=== PATIENT | male | born 1960 | race Caucasian/White ===

== ENCOUNTER → 2018-08-17 17:54 | Outpatient (CLI) | payer BC, SELFPAY ==
--- NOTE | 2018-08-17 18:03 | RAD_ITS ---
HISTORY: RIGHT SHOULDER PAIN COMPARISON: None FINDINGS: XR right shoulder 4 views No fracture or acute disease. The right glenohumeral relationship appears normal. Degenerative arthritis with mild narrowing of the right AC joint. No soft tissue calcifications. RAD/Shoulder min 2 Views IMPRESSION: 1. No fracture or acute disease. 2. Right AC joint mild degenerative arthritis. at 030 Reported and signed by: Haider Rainey MD Electronically Signed: Haider Rainey, at 3:08 EDT Tel , Service support ,
== END ==
PROVIDERS: Family Provider Family Medicine; PCP Family Medicine; Referring Provider Family Medicine; Visit Provider Family Medicine
DX: M25.511 Pain in right shoulder (principal)
CPT/HCPCS: 73030

== ENCOUNTER → 2018-11-01 | Outpatient (CLI) | payer BC, SELFPAY ==
[2018-11-01 12:38] LABS: ALB/GLOB Ratio 1.1 RATIO (0.9-2.4); AST(SGOT) 21 U/L (15-37); Alanine Aminotransfer ALT/SGPT 38 U/L (16-61); Albumin, Serum 3.6 g/dL (3.2-5.0); Alkaline Phosphatase 66 U/L (45-117); Anion Gap 6 (5-15); BUN 15 mg/dL (7-18); BUN/Creat Ratio 19.8 RATIO (10-20); Calcium,Total 8.2 mg/dL (8.5-10.1); Chloride 107 mmol/L (98-107); Cholesterol 187 mg/dL (200); Creatinine, Serum 0.76 mg/dL (0.70-1.30); EST Glomerular Filtration Rate 112 mL/min (>60); Est Glom Filt Rate - Afr Amer 135 mL/min (>60); Globulin 3.3 g/dL (2.2-4.2); Glucose 84 mg/dL (74-106); High Density Lipoprotein 51 mg/dL; PSA,Total - Annual Screen 1.31 ng/mL (0.00-4.00); Potassium 4.3 mmol/L (3.5-5.1); Protein, Total 6.9 g/dL (6.4-8.2); Sodium Level 139 mmol/L (136-145); Triglycerides 123 mg/dL; Very Low Density Lipoprotein 25 mg/dL (5-40)
== END | disposition home or self-care (01) ==
LOC: MFPLAB 09:51
PROVIDERS: Family Provider Family Medicine; PCP Family Medicine; Visit Provider Family Medicine
DX: I10 Essential (primary) hypertension (principal); Z12.5 Encounter for screening for malignant neoplasm of prostate
CPT/HCPCS: 36415; 80053; 80061; 84153; G0103

== ENCOUNTER → 2019-04-04 16:05 | Outpatient (CLI) | payer BC, SELFPAY ==
[2019-04-04 17:56] LABS: Anion Gap 9 (5-15); BUN 14 mg/dL (7-18); BUN/Creat Ratio 19.2 RATIO (10-20); Calcium,Total 8.6 mg/dL (8.5-10.1); Chloride 102 mmol/L (98-107); Creatinine, Serum 0.73 mg/dL (0.70-1.30); EST Glomerular Filtration Rate 117 mL/min (>60); Est Glom Filt Rate - Afr Amer 142 mL/min (>60); Glucose 100 mg/dL (74-106); Potassium 3.7 mmol/L (3.5-5.1); Sodium Level 138 mmol/L (136-145)
== END ==
PROVIDERS: Family Provider Family Medicine; PCP Family Medicine; Visit Provider Family Medicine
DX: I10 Essential (primary) hypertension (principal); R30.0 Dysuria
CPT/HCPCS: 36415; 80048; 87086

== ENCOUNTER → 2019-08-11 16:59 | Outpatient (CLI) | payer BC, SELFPAY ==
--- NOTE | 2019-08-11 17:04 | RAD_ITS ---
STUDY: X-RAY - LEFT KNEE REASON FOR EXAM: Male, 59 years old. LEFT KNEE PAIN AND SWELLING X 3-6 MO TECHNIQUE: 4 view(s) of the knee. COMPARISON: None. FINDINGS: Normal visualized distal femur. Normal visualized proximal tibia and fibula. Normal proximal tibiofibular articulation. There is no demonstrated fracture. Mild narrowing of the medial tibiofemoral compartment without osteophytes. Normal lateral femorotibial compartment. Normal patellofemoral articulation. There is no demonstrated joint effusion. The soft tissue structures are unremarkable. RAD/Knee 4 or More Views IMPRESSION: No acute fracture or dislocation. Mild narrowing of the medial tibiofemoral compartment. Electronically Signed: Joseluis Amaya MD at 0:02 EDT , Service support ,
== END ==
PROVIDERS: PCP Family Medicine; Referring Provider Family Medicine; Visit Provider Family Medicine
DX: M25.562 Pain in left knee (principal)
CPT/HCPCS: 73564

== ENCOUNTER → 2019-10-26 07:11 | Outpatient (CLI) | payer BC, SELFPAY ==
--- NOTE | 2019-10-26 07:20 | MRI_ITS ---
STUDY: MRI LEFT KNEE REASON FOR EXAM: Medial left knee pain for 6-8 months, no specific injury. TECHNIQUE: Standardized fat and water weighted pulse sequences were obtained in all 3 orthogonal planes. COMPARISON: Radiographs 08/11/2019. FINDINGS: There is tear/degeneration of the posterior horn and body of the medial meniscus (proton density sagittal images 9-16; proton density coronal images 14-18). There is peripheral subluxation of the medial meniscus. There is arthrosis of the medial femorotibial compartment with chondral thinning (T2 sagittal image 8). There is subchondral bone edema of the medial femoral condyle and tibial plateau (T2 coronal images 11-20), a stress phenomenon. Normal medial collateral ligamentous complex (MCL). Normal distal semimembranosus, gracilis and semitendinosus tendons. Normal lateral meniscus. Normal hyaline cartilage of the lateral femorotibial compartment. Normal lateral femoral condyle and tibial plateau. Normal proximal tibiofibular articulation. Normal lateral collateral (fibular) ligament. Normal popliteus tendon. Normal biceps femoris tendon. Normal anterior cruciate ligament (ACL). Normal posterior cruciate ligament (PCL). Normal congruent patellofemoral articulation. There is low-grade chondromalacia patellae (T2 axial images 7, 8). Normal medial and lateral patellar retinaculum. Normal visualized quadriceps tendon. Normal patellar tendon. Normal Hoffa''s fat pad. There is a [id number]-[id number]-mcpypesz sized joint effusion. There is a small popliteal cyst with mild extravasation of fluid (T2 coronal images 2-5). The otherwise visualized osseous structures are unremarkable. MRI/Lower Ext Joint Only (Routine) IMPRESSION: Tear/degeneration of the medial meniscus. Arthrosis of the medial femorotibial compartment. Subchondral bone edema of the medial femoral condyle and tibial plateau, a stress phenomenon. Low-grade chondromalacia patellae. Joint effusion. Small popliteal cyst with mild extravasation of fluid. Electronically Signed: Alvin Haji MD at 8:51 EDT Tel , Service support ,
== END ==
PROVIDERS: PCP Family Medicine; Referring Provider Family Medicine; Visit Provider Family Medicine
DX: M25.562 Pain in left knee (principal)
CPT/HCPCS: 73721

== ENCOUNTER → 2019-12-28 11:03 | Outpatient (CLI) | payer BC, SELFPAY ==
[2019-12-28 12:35] LABS: Hematocrit 47.2 % (40-54); Hemoglobin 15.6 g/dL (13.0-16.5); Mean Corp Hgb Conc 33.1 g/dL (32-36); Mean Corpuscular Hgb 30.7 pg (27.0-32.0); Mean Corpuscular Volume 92.9 fL (80-94); Mean Platelet Vol. 9.7 fl (6.2-12.0); Platelet Count 262 K/mm3 (150-450); RBC Distribution Width CV 11.8 % (11.6-14.6); RBC Distribution Width SD 40.4 fl (35.1-43.9); Red Blood Count 5.08 M/mm3 (4.6-6.2); White Blood Count 5.9 K/mm3 (4.4-11.0)
[2019-12-28 12:56] LABS: Prothrombin Time (Protime)PT. 12.7 SECONDS (11.7-14.9)
[2019-12-28 12:57] LABS: Partial Thromboplast Time 32.9 Seconds (24.1-36.2)
[2019-12-28 13:11] LABS: Anion Gap 2 (5-15); BUN 13 mg/dL (7-18); BUN/Creat Ratio 20.2 RATIO (10-20); Calcium,Total 8.7 mg/dL (8.5-10.1); Chloride 103 mmol/L (98-107); Cholesterol 208 mg/dL (200); Creatinine, Serum 0.64 mg/dL (0.70-1.30); EST Glomerular Filtration Rate 134 mL/min (>60); Est Glom Filt Rate - Afr Amer 162 mL/min (>60); Glucose 76 mg/dL (74-106); High Density Lipoprotein 54 mg/dL; PSA,Total - Annual Screen 1.45 ng/mL (0.00-4.00); Potassium 3.7 mmol/L (3.5-5.1); Sodium Level 137 mmol/L (136-145); Triglycerides 102 mg/dL; Very Low Density Lipoprotein 20 mg/dL (5-40)
== END ==
PROVIDERS: PCP Family Medicine; Referring Provider Family Medicine; Visit Provider Family Medicine
DX: Z01.818 Encounter for other preprocedural examination (principal); I10 Essential (primary) hypertension; Z12.5 Encounter for screening for malignant neoplasm of prostate
CPT/HCPCS: 36415; 80048; 80061; 84153; 85027; 85610; 85730; G0103

== ENCOUNTER → 2020-05-21 14:20 | Outpatient (CLI) | payer BC, SELFPAY ==
--- NOTE | 2020-05-21 14:22 | RAD_ITS ---
HISTORY: right shoulder paincervical radiculopathy at C5 ADDITIONAL HISTORY: None provided. EXAMINATION/TECHNIQUE: XR Spine Cervical 4 or 5 Views Number of images including paperwork: 5 COMPARISON: None FINDINGS: VERTEBRAE: No acute fracture. VERTEBRAL ALIGNMENT: No traumatic subluxation. Approximately 2 mm of anterolisthesis of C7 on T1. DISKS AND JOINTS: Moderate to severe disc space narrowing at C6-7. Mild to moderate disc space narrowing at C7-T1. Facet arthropathy. Mild foraminal narrowing at C7-T1 on the bilaterally. SOFT TISSUES: Unremarkable paraspinous soft tissues. RAD/Cerv Spine 4 or 5 Views IMPRESSION: No acute findings. Cervical spondylosis. at 0755 Reported and signed by: Dana Fairchild MD Electronically Signed: Dana Fairchild MD at 7:55 EST Tel , Service support ,
== END ==
PROVIDERS: PCP Family Medicine; Referring Provider Family Medicine; Visit Provider Family Medicine
DX: M54.12 Radiculopathy, cervical region (principal)
CPT/HCPCS: 72050

== ENCOUNTER 2020-06-19 10:00 | Outpatient (RCR) | payer BC, SELFPAY ==
--- NOTE | 2020-05-24 07:40 | HP.PTEVAL ---
Patient's Visit Information DAVID PAUL is a 59 year old M referred to Physical Therapy by Dr. Fermin Mancera MD with a diagnosis of cervical radicuopathy. Date of Evaluation: 05/24/20 Physical Therapist: Milton Lucia DPT, OCS, CSCS - Visit Plan Frequency: 2x /Week Duration: 4-6 Weeks Plan: 2x/week for 4-6 weeks. 1. moniotr and progress Natty ret ex to ext and mobs as needed, PROM and distraction as needed. 2. stretch cervical spine and may use massage to prep this as needed. 3. postural and cervical strength. 4. Mh as needed. - Subjective Having troube with R shoulder and arm. [place] in scapular area and upper arm hurts posteriorly. Duration is 2-3 months with insidious onset but painted barn by hand, not sure if that is what casued it. Improved slightly but not great. Has seen chripractor which helped slightly. Driving is worse. Pain is to 5/10 with driving in upper arm. Mostly constant to elbow. Sleep is OK. Works as warehouse and driving. Uses [employer] sitting. [place]rose after work for a week. Activiites a home are close to normal but if it really hurts will put things off. - Pain R upper arm Pain Intensity (Out of 10): 1 Pain Intensity Range: 0, 5 - Objective Forward head posture, forward scap. reflexes 2/3 bi and tri B. Sensation UE WNL to gross light touch. Strength UE symmetrical adn 4/5. Scapular and UE AROM WFL and symmetrical without pain. cervical AROM ext 50 slight pain. retraction limited and slight pain. R rotation 45 adn L 55. SB with pressure is painful scapula R bt not L. - HK, - neer impongement. RM baseline 5/10 thoracic and upper arm R. protrusion W to 6/10. retraction: pain during, arm better and back no change. Extension: 5/10 arm 5/10 toracic. ret/ext with OP: NE. ret with OP: W and back 6/10. Walks normal and trasnfers normal and I. - Goals Goal 1:: sit 30 minutes without increase pain and drive to work without pain. Goal Time Frame: 4-6 Weeks Goal 2:: Pt feel 75% better overall, no arm pain and 1/10 in neck at worst. Goal Time Frame: 4-6 Weeks Goal 3:: Oswestry neck 10 at worst Goal Time Frame: 4-6 Weeks Goal 4:: I approp HEP and managemnt to minimize future problems. Goal Time Frame: 4-6 Weeks - Rehabilitation Potential Physical Therapy Diagnosis: cervical derangement Rehabilitation Potential: Fair - Anticipated Interventions Patient/Client Instruction: Educate patient on: Condition, Plan of Care For the Purpose of:: To decrease pain, To increase ROM, To improve muscle performance and motor function, To increase tolerance to activity/condition/position Therapeutic Exercise to Include: Strength training, Flexibilty training, Passive ROM, Active ROM, Natty Exercises For the Purpose of:: To decrease pain, To increase ROM, To improve muscle performance and motor function, To increase tolerance to activity/condition/position Manual Therapy Techniques to Include: Passive ROM, Soft tissue mobilization For the Purpose of:: To decrease pain, To increase ROM Thermo therapy (hot pack): Yes For the Purpose of:: To decrease pain Thank you for the opportunity to evaluate your patient. For Medicare and Medicare HMO plans, please review the plan of care and approve it. It will need to be FAXED BACK to us at [phone] for Medicare purposes. For Medicare only, by signing this I certify the plan of care. Please let me know if there are questions or concerns regarding this plan of care. Physician Signature: Date:
--- NOTE | 2020-06-19 10:17 | HP.PTDCSUM ---
It has been my pleasure to treat DAVID PAUL referred by Dr. Fermin Mancera MD, with the diagnosis of cervical radicuopathy for a total of 6 visit(s). Discharge Date: 06/19/20 Please see the following information for a summary of their discharge status. Subjective: Still going the right way. Feeling better after exercises. Sitting around can be worse. Stretches really hep. Sleep is OK. Work is going OK. Sitting around is still mildly stiff. To Dr. Mancera tomorrow. R upper arm Pain Intensity (Out of 10): 6 % Improvement: 80 Objective/Function: 65 c/s ext, 70 B rotations, full flexion all without pain today. Posture is stillslightly FW head until cued but more conscious of postural [id number] and its importance. Strength UE 4+/5 without myotomal abnormalities. OVERALL DOING EXCELLENT AND READY TO MANAGE HIMSELF VIA HEP. Goal 1:: sit 30 minutes without increase pain and drive to work without pain. Goal Progress: intermittently Goal 2:: Pt feel 75% better overall, no arm pain and 1/10 in neck at worst. Goal Progress: Goal Met Goal 3:: Oswestry neck 10 at worst Goal Progress: Goal Met Goal 4:: I approp HEP and managemnt to minimize future problems. Goal Progress: Goal Met Plan: D/C Discharge Comments: Pt will f/u with doctor tomorrow and is doing well. Will manage via HEP at this point. If there are questions or concerns regarding this patient's physical therapy, please feel free to call me at [phone]. Thank you for the referral of this patient. Sincerely, Milton Lucia, DPT, OCS, CSCS
== END 2020-06-19 10:34 | disposition home or self-care (01) ==
LOC: PT 10:00
PROVIDERS: PCP Family Medicine; Referring Provider Family Medicine; Visit Provider Family Medicine
DX: M54.12 Radiculopathy, cervical region (principal)
CPT/HCPCS: 97110; 97140; 97162; 97530

== ENCOUNTER → 2020-08-09 08:18 | Outpatient (CLI) | payer BC, SELFPAY ==
[2020-08-09 10:42] LABS: Anion Gap 6 (5-15); BUN 15 mg/dL (7-18); BUN/Creat Ratio 20.3 RATIO (10-20); Calcium,Total 8.7 mg/dL (8.5-10.1); Chloride 104 mmol/L (98-107); Cholesterol 232 mg/dL (200); Creatinine, Serum 0.74 mg/dL (0.70-1.30); EST Glomerular Filtration Rate 114 mL/min (>60); Est Glom Filt Rate - Afr Amer 138 mL/min (>60); Glucose 84 mg/dL (74-106); High Density Lipoprotein 60 mg/dL; PSA,Total - Annual Screen 1.79 ng/mL (0.00-4.00); Potassium 3.8 mmol/L (3.5-5.1); Sodium Level 139 mmol/L (136-145); Triglycerides 110 mg/dL; Very Low Density Lipoprotein 22 mg/dL (5-40)
== END ==
PROVIDERS: PCP Family Medicine; Referring Provider Family Medicine; Visit Provider Family Medicine
DX: I10 Essential (primary) hypertension (principal); Z12.5 Encounter for screening for malignant neoplasm of prostate
CPT/HCPCS: 36415; 80048; 80061; 84153; G0103

== ENCOUNTER → 2020-10-01 | Outpatient (CLI) | payer BC, SELFPAY ==
--- NOTE | 2020-10-01 | LES_PTH ---
PATIENT: DAVID PAUL LOC: [facility] U#:[id number] AGE/SX: 60/M ROOM: RE10/01/[address]: Dr. Elkin Mancera MD : 1960 BED: DIS: 10/01/2020 SPEC #: [id number] RECD: 10/01/20 15:07 STATUS: ALEXANDER PRUITTCameron #: [id number] JAG: 10/01/20 00:[address]: Elkin Mancera DEPT: SURGICAL PATHOLOGY RECD BY: Champ Lee Tissues: Skin of chest Procedures: Surgery Specimen Level IV HEADER OPERATION: Chest lesion excision right side PRE-OP DIAGNOSIS: Rule out SCC TISSUE SUBMITTED: Chest lesion right side MICROSCOPIC DIAGNOSIS Skin lesion of right side of chest, biopsy: Invasive squamous cell carcinoma, keratoacanthomatous type, incompletely excised. See comment. AM:velma 10/03/2020 COMMENT The lesion extends to the deep margin of excision. Clinical correlation is suggested. Case has been reviewed in consultation with Dr. Thomas who concurs with the above diagnosis. IDC:SJ MICROSCOPIC DESCRIPTION Slides are reviewed. GROSS DESCRIPTION Received in fixative is one container labeled with the patient's name and designated chest lesion. The specimen consists of a piece of silva-white skin measuring 0.8 x 0.4 x 0.2 cm. The skin surface shows a silva-rudolph lesion measuring 0.5 cm in diameter. The specimen is inked and submitted entirely in one cassette. It will be sectioned at the time of embedding. / TONIA:rg 10/02/20 TC:0 CPT: 12458
== END | disposition home or self-care (01) ==
LOC: LABSPEC 15:13
PROVIDERS: PCP Family Medicine; Referring Provider Family Medicine; Visit Provider Family Medicine
DX: C44.529 Squamous cell carcinoma of skin of other part of trunk (principal)
CPT/HCPCS: 88305

== ENCOUNTER 2020-11-09 10:50 | Day surgery (SDC) | payer BC, SELFPAY ==
[2020-10-18 12:57] VITALS: BMI 25.8
--- NOTE | 2020-11-08 21:45 | HP.PCM_ITS ---
History and Physical Date of Admission: 11/09/20 HISTORY OF PRESENT ILLNESS 60 year old man presents with an enlarging lesion right upper medial chest wall by clavicle with some scabbing. A shave biopsy was done on 10/03/20. It showed invasive squamous cell carcinoma, keratoacanthoma type, with positive margins. He denies fever. He denies trauma. He denies recent infection. He has had skin cancers removed in the past. There is also a positive family history of skin cancer. He presents at this time for further evaluation and treatment. PAST MEDICAL HISTORY High blood pressure Personal history of skin cancer Primary squamous cell carcinoma of chest wall PAST SURGICAL HISTORY None. ALLERGIES No Known Allergies MEDICATIONS lisinopril-hydrochlorothiazide FAMILY HISTORY Cancer Diabetes Family history of skin cancer SOCIAL HISTORY Smoking Status: Never smoker alcohol intake: never substance use type: does not use REVIEW OF SYSTEMS General - Denies fever, fatigue, and weight loss. Eyes - Denies cataracts and glaucoma. ENT - Denies nasal congestion and sore throat. Has chronic sinusitis. Endocrine - Denies excessive thirst and urination. Skin - Has enlarging lesion right upper medial chest wall by clavicle that was biopsied on 10/03/20 and showed an invasive squamous cell carcinoma, keratoacanthoma type. Has personal history of skin cancer. Has family history of skin cancer. Musculoskeletal - Has joint pain, joint stiffness, weakness of muscles and joints. Denies back pain, and arthritis. Neuro - Denies headaches. Cardiovascular - Denies chest pain, fatigue, and shortness of breath with exertion. Psych - Denies anxiety and depression. Respiratory - Denies chronic cough and shortness of breath. Gastrointestinal - Denies nausea, vomiting, diarrhea, and constipation. Hematologic - Denies abnormal bruising and bleeding. Genitourinary - Denies hematuria and urinary frequency. PHYSICAL EXAMINATION General - Alert and Oriented. HEENT - PERRL. EOMI. Throat is clear. No suspicious lesions noted. Neck - Supple and nontender. No cervical adenopathy. No suspicious lesions noted. Chest wall - On the right upper medial chest wall by clavicle is a lesion with irregular borders. Some scabbing present. Measures 1.1 cm. No ulceration. Lesion is nontender. Recent biopsy on 10/03/20 showed an invasive squamous cell carcinoma, keratoacanthoma type. Lungs - Clear to auscultation. Heart - Regular rate and rhythm. Abdomen - Soft and nondistended. Extremities - FROM. No axillary adenopathy. Radial pulses are palpable. Neuro - CN II-XII grossly intact. Psych - Normal mood and affect. ASSESSMENT 1. 1.1 cm invasive squamous cell carcinoma, keratoacanthoma type, right upper medial chest wall by clavicle. 2. Personal history of skin cancer. 3. Family history of skin cancer. PLAN Recommend excision of this invasive squamous cell carcinoma, keratoacanthoma type, with a margin in all directions and send it to Pathology for analysis to rule out carcinoma at the margins. Will use a 6 mm margin. Reconstruction will be with a local transposition skin flap. Surgery will be done under local anesthesia and IV sedation on an outpatient basis. Patient was informed of the risks and complications of the procedure including alternatives to surgery. These were discussed with the patient personally. Patient voices understanding and wishes to proceed. Some of the risks and complications were included in a form from the [place] [employer]. We discussed the current risks associated with COVID-19. While it is understood that there is a community spread of COVID-19, the risk of simon COVID-19 while at [facility] ([facility]) is very low; however, the risk cannot be completely mitigated because of the community spread of the disease. We discussed in detail the risk of exposure to and/or potential harm posed by the COVID-19 virus with having a surgery/procedure at this time versus the risk of delaying the surgery/procedure. It is not possible to know either the risk of de laying the surgery or procedure or chance of getting an infection with perfect accuracy, but a joint decision was made to proceed at this time with the scheduled surgery/procedure as indicated on the consent form. Patient was notified that we will need to comply with any screening or testing [facility] wishes to perform or that surgery may be delayed for any positive results. Discussed with the patient that I was tested for COVID-19 on 12/01/19 which was negative and on 12/15/19 which was negative and on 12/29/19 which was negative and on 01/12/20 which was negative and on 01/26/20 which was negative and on 02/16/20 which was negative and on 03/08/20 which was negative and on 04/12/20 which was negative and on 05/03/20 which was negative and on 05/22/20 which was negative. My testing regimen at this time is to be COVID-19 tested every 2 weeks or so. I received the COVID-19 vaccine (Moderna) on 05/30/20 and the second vaccine dose was received on 06/27/20. When I was hospitalized on 07/30/20 I was tested for COVID-19 which was negative. I was also tested for COVID-19 on 08/14/20 which was negative and on 09/10/20 which was negative. Procedure Criteria Procedure Type: Elective COVID Risk Discussion: The surgeon/proceduralist and patient have discussed in detail the risk of exposure to and/or potential harm posed by the COVID-19 virus with having a surgery/procedure at this time versus the risk of delaying the surgery/procedure. It is not possible to know either the risk of delaying the surgery or procedure or chance of getting an infection with perfect accuracy, but a joint decision was made between the patient and the surgeon/proceduralist to proceed at this time with the scheduled surgery/procedure as indicated on the consent form.
--- NOTE | 2020-11-09 | LES_PTH ---
PATIENT: DAVID PAUL LOC: [facility] U#:[id number] AGE/SX: 60/M ROOM: RE11/09/[address]: Dr. Uriel Sutherladn MD : 1960 BED: DIS: 11/09/2020 SPEC #: [id number] RECD: 11/09/20 15:53 STATUS: ALEXANDER AGNES #: [id number] JAG: 11/09/20 00:[address]: Uriel Sutherland DEPT: SURGICAL PATHOLOGY RECD BY: Champ Lee ENTERED: 11/12/20 09:48 SP TYPE: Lesion OTHR DR: Dr. Elkin Mancera MD Tissues: Chest wall, NOS Procedures: Surgery Specimen Level IV HEADER OPERATION: Excision squamous cell carcinoma medial chest wall by clavicle PRE-OP DIAGNOSIS: Squamous cell carcinoma right upper medial chest wall TISSUE SUBMITTED: Squamous cell carcinoma right medial chest wall by clavicle, suture maria 12 o?clock MICROSCOPIC DIAGNOSIS Squamous cell carcinoma right medial chest wall by clavicle, excisional biopsy: Verrucous keratosis with seborrheic keratosis-like features, completely excised. Negative for residual squamous cell carcinoma. Dermal fibrosis, consistent with scar. See comment. TONIA:velma 11/13/2020 COMMENT Please make reference to previous specimen ([id number]), skin lesion of right side of chest, biopsy with diagnosis of ?invasive squamous cell carcinoma, keratoacanthomatous type, incompletely excised.? MICROSCOPIC DESCRIPTION Slides are reviewed. GROSS DESCRIPTION Received in fixative is one container labeled with the patient's name and designated squamous cell carcinoma right medial chest wall by clavicle, suture at 12 o'clock. The specimen consists of a irving-shaped piece of silva-white skin measuring 2 x 1.2 cm and up to 0.5 cm in thickness. A raised, silva lesion is noted on the surface measuring 0.5 cm in greatest dimension. The specimen is oriented by a suture identifying the 12 o?clock positon. The specimen is inked as follows: 12 to 3 o?clock - black, 3 to 6 o?clock - blue, 6 to 9 o?clock - green and 9 to 12 o?clock - yellow. The specimen is serially sectioned and submitted entirely in two cassettes. / TONIA:velma 11/12/20 TC:5 CPT: 63447
[2020-11-09 11:05] VITALS: BP 134/74; PULSE 74; RESP 14; TEMP 36.8; O2SAT 98; BMI 24.7
[2020-11-09] MEDS: Lactated Ringers 1,000 ML 100 ML IV (11:30)
[2020-11-09] MEDS: Cefazolin 2 GM in 0.9% Normal Saline 100 ML IV (14:13)
[2020-11-09] MEDS: Lidocaine 1% /Epi 1:100 (20ml) 20 ML Vial (14:40)
[2020-11-09] MEDS: Mupirocin Ointment 22gm Tube 1 APPLIC (14:56)
--- NOTE | 2020-11-09 15:10 | PCM.OPRPT ---
Problems Associated Problem List Diagnoses (1) Primary squamous cell carcinoma of chest wall: (2) Personal history of skin cancer: (3) Family history of skin cancer: Report of Operation Date of Procedure: 11/09/20 Pre-Operative Diagnosis: 1. 1.1 cm invasive squamous cell carcinoma, keratoacanthoma type, right upper medial chest wall by clavicle. 2. Personal history of skin cancer. 3. Family history of skin cancer. Post-Operative Diagnosis: Same. Surgery/Procedure Performed:: Excision 1.1 cm invasive squamous cell carcinoma, keratoacanthoma type, right upper medial chest wall by clavicle with rhomboid transposition skin flap reconstruction (10.58 cm2). Description of Surgical Findings:: 60 year old man presents with an enlarging lesion right upper medial chest wall by clavicle with some scabbing. A shave biopsy was done on 10/03/20. It showed invasive squamous cell carcinoma, keratoacanthoma type, with positive margins. He denies fever. He denies trauma. He denies recent infection. He has had skin cancers removed in the past. There is also a positive family history of skin cancer. Patient was informed of the risks and complications of the procedure including alternatives to surgery. These were discussed with the patient personally. Patient voices understanding and wishes to proceed. Some of the risks and complications were included in a form from the [place] [employer]. Surgeon: Uriel Sutherland environmental planning engineer: None Type of Anesthesia: Local MAC (xylocaine with epinephrine and IV sedation.) Specimen's removed: Invasive squamous cell carcinoma, keratoacanthoma type, right upper medial chest wall by clavicle to Pathology. Drains: None. Estimated Blood Loss (mL): 5. Description of Procedure: Patient was taken to OR in supine position and was given IV sedation. The chest wall was prepped and draped in the usual fashion. SCD's were placed for DVT prophylaxis. Perioperative antibiotics were given intravenously. The invasive squamous cell carcinoma, keratoacanthoma type, right upper medial chest wall by the clavicle was infiltrated with xylocaine and epinephrine. After waiting 5 minutes for the anesthetic to take effect, the lesion was excised with a 6 mm margin in all directions thus making it a 2.3 cm excision. It was excised in a rhomboid fashion down into the subcutaneous tissue. A suture was marked at 12 oclock position for pathology orientation. The lesion was sent to Pathology for analysis to rule out carcinoma at the margins. A rhomboid flap was designed adjacent to the defect. Incisions were made and the rhomboid flap was elevated on a subcutaneous pedicle. The flap was easily transposed into the defect with minimal tension and minimal distortion. The size of the defect and the size of the flap needed to close the defect was 10.58 cm2. Hemostasis was obtained with electrocautery. The rhomboid flap was transposed into the wound defect and closed in a layered fashion with 4-0 Monocryl interrupted sutures for the deep dermis and subcutaneous tissue. The skin was approximated with 4-0 Prolene simple interrupted sutures. Antibiotic ointment was applied to the suture line followed by a gauze dressing. Patient tolerated the procedure well and was sent to PACU in satisfactory condition. Patient will be sent home on antibiotics and pain medication. He will keep his head elevated during the initial postoperative period. Patient will followup in a week for a wound check and for discussion of the pathology report. The sutures will be removed in 1-2 weeks. Grafts/Implants Used: None. Complications None. Admit VTE Documentation VTE Present on Admission: No VTE Mechan Device Prophylaxis: [facility]'s VTE Pharm Prophylaxis ordered?: No Addendum Addendum: Surgery Charges CPT - 38740 ICD-10 - C76.1, Z85.828, Z80.8
--- NOTE | 2020-11-09 15:14 | PCM.DC ---
Discharge Instructions Diet Discharge Diet: No restrictions Activity Discharge Activity: May Not Drive (when taking pain medication.), May Shower (in two days.) and - (keep head elevated. no heavy lifting.) May shower in (days): 2 May resume sexual activity in: No Restrictions Weight Bearing Status: Weight bearing as tolerated Lifting Restrictions: 20 lbs. Keep extremity elevated above heart level: - (elevate head.) Dressing / Incision Call your doctor if your incision/area has: Continuous Slow Oozing, Sudden Increased Bleeding, Increased Pain/ Swelling, Increased Redness, Foul Smelling Discharge and Swelling at the incision site Call your doctor if you observe: Fever of 101 or Higher, Coldness, Increased Pain, Shortness of breath, Chest pain, Calf discomfort and Uncontrolled pain Suture Line Care: - (after operative dressing removed in two days, apply antibiotic ointment to suture line daily.) Remove Dressing in: 2 days Cleanse incision/area with: Soap & Water (after operative dressing removed in two days, the incision may get wet in the shower.) Follow Up Care Please Follow Up With: Uriel Sutherland MD When: one week. call [phone] for appt. Test Results: Test results from this visit will be discussed in further detail at your follow-up appointment, if applicable. Discharge Plan Admission Primary Reason for Your Visit: outpatient surgery Attending Provider: Uriel Sutherland Primary Care Provider: Fermin Mancera Discharge Orders/Prescriptions Prescriptions: New clindamycin HCl [Cleocin HCl] 300 mg capsule 300 mg PO TID Qty: 12 RF: 0 oxycodone-acetaminophen [Percocet] 5-325 mg tablet 1 tab PO Q6H PRN (Reason: pain (scale score 7-10)) 5 Days Qty: 20 RF: 0 Continued lisinopril-hydrochlorothiazide [Zestoretic] 10-12.5 mg tablet 1 tab PO BID RF: 0 Referrals / Follow Up: Fermin Mancera MD [Primary Care Provider] - Disposition Disposition (needs filled in before D/C Order can be placed): Home, self care
[2020-11-09 15:16] VITALS: BP 117/71; BP 134/74; PULSE 74; RESP 18; TEMP 36.3; O2SAT 98
[2020-11-09 15:20] VITALS: BP 120/75; BP 134/74; PULSE 70; RESP 16; O2SAT 98
[2020-11-09 15:25] VITALS: BP 131/77; BP 134/74; PULSE 75; RESP 16; O2SAT 99
[2020-11-09 15:33] VITALS: BP 130/79; BP 134/74; PULSE 75; RESP 16; TEMP 36.5; O2SAT 99
[2020-11-09 16:57] VITALS: BP 127/71; BP 134/74; PULSE 79; RESP 79; TEMP 36.5; O2SAT 100
== END 2020-11-09 16:59 | disposition home or self-care (01) ==
LOC: SDC 10:51 → AC 10:53
PROVIDERS: PCP Family Medicine; Referring Provider Surgery; Visit Provider Surgery
PROC: (CPT 14000; principal; 2020-11-09 12:20)
DX: C76.1 Malignant neoplasm of thorax (principal); L82.1 Other seborrheic keratosis; L57.0 Actinic keratosis; W89.9XXA Exposure to unspecified man-made visible and ultraviolet light, initial encounter; Y93.9 Activity, unspecified; Y92.9 Unspecified place or not applicable; Y99.9 Unspecified external cause status; L85.8 Other specified epidermal thickening; Z20.822 Contact with and (suspected) exposure to COVID-19; I10 Essential (primary) hypertension; Z85.828 Personal history of other malignant neoplasm of skin; Z80.8 Family history of malignant neoplasm of other organs or systems; Z83.3 Family history of diabetes mellitus
CPT/HCPCS: 00400; 14000; 87426; 88305; C9803; J7120

== ENCOUNTER → 2023-02-03 | Outpatient (CLI) | payer OTHER, SELFPAY ==
--- NOTE | 2023-02-03 11:58 | RAD_ITS ---
INDICATION: pain. Radiation to R groin. EXAMINATION/TECHNIQUE: X-RAY - XR Spine Lumbar Comp W/ Bending Min 6 Views COMPARISON: No prior examinations are available for comparison. FINDINGS: VERTEBRAE: Preserved vertebral body height. No fracture. No spondylolisthesis. Preservation of the normal lumbar lordosis. No substantial scoliosis. DISCS: Narrowing of L2-L3 and L4-5 disc spaces. Mild endplate spondylosis. INCLUDED ABDOMEN: Included bowel gas pattern is non-obstructive. RAD/L/S Spine w Bend Min 6 Vw IMPRESSION: Mild degenerative changes of the lumbar spine. Electronically Signed: Akash Rodriguez MD at 10:49 EDT ,
== END | disposition home or self-care (01) ==
PROVIDERS: PCP Family Medicine; Referring Provider Family Medicine; Visit Provider Family Medicine
DX: M54.50 Low back pain, unspecified (principal)
CPT/HCPCS: 72114

== ENCOUNTER 2023-02-10 12:15 | Outpatient (RCR) | payer OTHER, SELFPAY ==
--- NOTE | 2023-02-10 13:31 | HP.PTEVAL ---
Patient's Visit Information Visit Information Visit Information: DAVID PAUL is a 62 year old M referred to Physical Therapy by Dr. Fermin Mancera MD with a diagnosis of LOW BACK PAIN. Date of Evaluation: 02/10/23 Physical Therapist: Uriel Damian PT, Cert MDT, OCS Visit Plan Frequency: 1 visit Plan: PT [facility] ONLY -HEP Subjective Subjective: This 62 y/o male presents to physical therapy with low back pain. Patient has had lumbar pain ~ 3weeks . Seen DR lagunas PT and had x-rays DDD. Patient pain described as ache. Patient did not have any injury, Rides Towmotor at work. Location of pain symmetrical lumbar. Aggravating fcators sitting . Alleviating factors walking and movement. Denies paresthesia/tingling. Coughing/sneezing-. Bowel/bladder-. Sleeping good at night. Patient pain affects QOL and function. Patient goals to learn HEP SOCIAL: VOCATION: [employer] Pain Bilateral: Pain Intensity (Out of 10): 2 Comment: back Objective Objective: POSTURE: WFL GAIT: reciprocal pattern SYMMTRIES: align MMT: quads/hams 4/5 ,hip flexion 4/5 ,ankle 5/5 LUMBAR ROM: flexion WFL ,extension mod loss ,side glides min loss FLEXABLITY: hamstrings mod tight Special Tests L/S Slump test left side: Negative L/S Slump test right side: Negative L/S Left Straight Leg Raise: Negative L/S Right Straight Leg Raise: Negative Lumbar Standing: Flexion - Mechanical Response: No effect Lumbar Standing: Flexion - Symptoms During Testing: No effect Lumbar Standing: Flexion - Symptoms After Testing: No effect Lumbar Standing: Extension - Mechanical Response: No effect Lumbar Standing: Extension - Symptoms During Testing: Increases Lumbar Standing: Extension - Symptoms After Testing: No worse Lumbar Standing: Right Side Glides - Mechanical Response: No effect Lumbar Standing: Right Side [place] - Symptoms During Testing: No effect Lumbar Standing: Right Side [place] - Symptoms After Testing: No effect Lumbar Standing: Left Side [place] - Mechanical Response: No effect Lumbar Standing: Left Side [place] - Symptoms During Testing: No effect Lumbar Standing: Left Side [place] - Symptoms After Testing: No effect Lumbar Lying: Flexion - Mechanical Response: No effect Lumbar Lying: Flexion - Symptoms During Testing: No effect Lumbar Lying: Flexion - Symptoms After Testing: No effect Lumbar Lying: Extension - Mechanical Response: Increases motion Lumbar Lying: Extension - Symptoms During Testing: Decreases Lumbar Lying: Extension - Symptoms After Testing: Better Goals Goal 1:: Patient was provided with HEP focusing on posture and charlene ex's Goal Time Frame: 1 visist Rehabilitation Potential Physical Therapy Diagnosis: This 62 y/o male presents to physical therapy with low make pain with possible disc derangement with pain with positioning sitting better with correction of posture and REIL developed HEP Rehabilitation Potential: Good Anticipated Interventions Patient/Client Instruction: Educate patient on: Condition and Plan of Care For the Purpose of:: To decrease pain, To increase ROM, To improve muscle performance and motor function, To increase tolerance to activity/condition/position, To improve ability of physical actions for home/community/work/leisure, To improve health of tissue, To decrease soft tissue restriction and To increase flexibility/ROM Therapeutic Exercise to Include: Strength training, Postural training, Flexibilty training, Dynamic Lumbar Stabilization and Charlene Exercises For the Purpose of:: To decrease pain, To increase ROM, To improve muscle performance and motor function, To increase tolerance to activity/condition/position, To improve ability of physical actions for home/community/work/leisure, To improve health of tissue, To decrease soft tissue restriction and To increase flexibility/ROM Text: Thank you for the opportunity to evaluate your patient. For Medicare and Medicare HMO plans, please review the plan of care and approve it. It will need to be FAXED BACK to us at [phone] for Medicare purposes. For Medicare only, by signing this I certify the plan of care. Please let me know if there are questions or concerns regarding this plan of care. Physician Signature: Date:
== END 2023-02-10 13:42 | disposition home or self-care (01) ==
LOC: PT 12:15
PROVIDERS: PCP Family Medicine; Referring Provider Family Medicine; Visit Provider Family Medicine
DX: M54.50 Low back pain, unspecified (principal)
CPT/HCPCS: 97110; 97162

== ENCOUNTER → 2025-03-09 | Outpatient (CLI) | payer OTHER, SELFPAY ==
--- NOTE | 2025-03-09 12:33 | RAD_ITS ---
PROCEDURE: CERV SPINE 4 OR 5 VIEWS 03/09/2025 REASON FOR EXAM: PAIN, LOSS MOTION TECHNIQUE: Procedure Code: [facility] Modality: DX Procedure: CERV SPINE 4 OR 5 VIEWS Frontal, oblique, lateral, and odontoid views of the cervical spine COMPARISON: Cervical spine radiographs 05/21/2020 FINDINGS: Cervical vertebral body heights maintained. There is mild anterolisthesis of C5 on C6, unchanged. Multilevel intervertebral disc height loss with endplate osteophyte formation and facet arthrosis which is most pronounced at C6-7. There is at least mild osseous spinal canal narrowing bilaterally at the C6-7 level. Prevertebral soft tissues unremarkable. Odontoid view is normal. RAD/Cerv Spine 4 or 5 Views IMPRESSION: Multilevel degenerative changes of the cervical spine are worst at C6-7. Reading Location: [place]
== END | disposition home or self-care (01) ==
LOC: MTRAD 12:33
PROVIDERS: PCP Family Medicine; Referring Provider Family Medicine; Visit Provider Family Medicine
DX: M54.2 Cervicalgia (principal)
CPT/HCPCS: 72050

== ENCOUNTER → 2025-03-27 | Outpatient (CLI) | payer OTHER, SELFPAY ==
[2025-03-27 10:51] LABS: AST(SGOT) 34 U/L (<=37); Alanine Aminotransfer ALT/SGPT 37 U/L (<=46); Albumin, Serum 4.2 g/dL (3.4-4.8); Alkaline Phosphatase 68 U/L (40-129); Anion Gap 8 (5-15); BUN 16 mg/dL (4-19); BUN/Creat Ratio 22.2 RATIO (10-20); Calcium,Total 8.9 mg/dL (7.6-11.0); Carbon Dioxide 26.8 mmol/L (21.0-32.0); Chloride 106 mmol/L (98-108); Cholesterol 154 mg/dL (<=200); Globulin 2.6 g/dL (2.2-4.2); Glucose 97 mg/dL (70-99); Low Density Lipoprotein Calc. 89 mg/dL; PSA,Total - Annual Screen 4.13 ng/mL (0.02-4.00); Potassium 4.5 mmol/L (3.3-5.1); Triglycerides 57 mg/dL; Very Low Density Lipoprotein 11 mg/dL (5-40); cholesterol:hdl ratio screen 2.90
== END | disposition home or self-care (01) ==
LOC: MTLAB 08:04
PROVIDERS: PCP Family Medicine; Referring Provider Family Medicine; Visit Provider Family Medicine
DX: Z12.5 Encounter for screening for malignant neoplasm of prostate (principal); E78.5 Hyperlipidemia, unspecified
CPT/HCPCS: 36415; 80053; 80061; 84153; G0103

== ENCOUNTER 2025-04-13 12:00 | Outpatient (RCR) | payer OTHER, SELFPAY ==
--- NOTE | 2025-03-23 15:09 | HP.PTEVAL ---
Patient's Visit Information Visit Information Visit Information: DAVID PAUL is a 64 year old M referred to Physical Therapy by Dr. Elkin Mancera MD with a diagnosis of NECK PAIN AND DDD. Date of Evaluation: 03/23/25 Physical Therapist: Che Segura PT, Cert MDT Visit Plan Frequency: 2x /Week Duration: 4-6 Weeks Plan: Scapular Strengthening and B Pec/UT/Levator/Scalene Stretching to help reduce stress on Cervical Spine with Daily Activities. US at 1.3 W/CM2 100% to R Neck Musculature in Sitting. Moist Heat to Neck as needed. Instruction in Proper Posture Control, Ergonomics with ADL's and Appropriate Activity Modifications. HEP Instructions. 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 NOT MUCH LIFTING BUT ROUGH BOUNCING IN TOW MOTOR AT TIMES. Present symptoms: MATI NECK PAIN. H/O R UE SX'S BUT NOW IT'S GOING DOWN THE L UE. NOTICES IT MOSTLY DOWN THE ARM AT NIGHT TO ABOUT [place]BOW OR MAYBE FORARM. NECK IS STIFF, CRACKING IN NECK WITH MVMT Present since: ABOUT 4 YEARS OR SO Getting Better, Getting Worse or Staying the Same: WORSE Pain Scale: Worst - 5/10 Least - 1/10 Currently: 06/10 Commenced as a result of: NO APPARENT REASON Symptoms at onset: NECK PAIN AND NUMBNESS AND TINGLING DOWN R ARM Worse: LYING ON L SIDE, TURNING HEAD, BOUNCING ON TOW MOTOR, WATCHING TV FOR AWHILE Better: EX'S FROM THERAPY A FEW YEARS AGO, Disturbed sleep: NO Previous history/Previous treatment: PT SEVERAL YEARS AGO WHEN DX'D WITH BULGING DISC This episode: NO TREATMENT THIS EPISODE Dizziness: NO Tinnitus: CHRONIC Nausea: NO Shortness of Breath: NO Difficulty Swallowing: NO Gait: NORMAL. NO FALLS Accidents: NO Unexplained weight loss: NO Imaging: RECENT CERVICAL X-RAY 03/09/25 FROM [facility] EMR: COMPARISON: Cervical spine radiographs 05/21/2020 FINDINGS: Cervical vertebral body heights maintained. There is mild anterolisthesis of C5 on C6, unchanged. Multilevel intervertebral disc height loss with endplate osteophyte formation and facet arthrosis which is most pronounced at C6-7. There is at least mild osseous spinal canal narrowing bilaterally at the C6-7 level. Prevertebral soft tissues unremarkable. Odontoid view is normal. IMPRESSION: Multilevel degenerative changes of the cervical spine are worst at C6-7. PMH/Recent major surgery: Hypertension History of trigger finger ~08/02/14 Personal history of skin cancer Primary squamous cell carcinoma of chest wall Allergies Objective Objective: Sitting Posture/Standing Posture: FH AND ROUNDED SHOULDERS. NO TORTICOLLIS. Other Observations: INDEP GAIT AND TRANSFERS. FAIR POSTURE CONTROL THROUGHOUT SESSION WITH PATIENT REPORTING HE HAS BEEN WORKING ON THIS MORE LATELY SINCE HIS NECK HAS BEEN HURTING MORE. Sensory deficit: MATI UE LIGHT TOUCH SENSATION GROSSLY INTACT AND SYMMETRICAL ROM deficit: R SHLD ELEVATION TO 160 DEG AND L 153 DEG. 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 Dural Signs: NEGATIVE MATI UE'S. Cervical Mvmt Loss: Flex: MOD - INCREASES NECK- NW Pro: NIL - INCREASES NECK - NW Ext: MOD TO SUSAN - NE Ret: SUSAN - INCREASE NECK - W RSB: SUSAN - INCREASES L NECK - NW LSB: SUSAN - INCREASES L NECK - NW R Rot: MOD - INCREASES MATI NECK - NW L Rot: MOD TO SUSAN - INCREASES MATI NECK - NW Postural strength: GOOD Palpation: TENDERNESS THROUGHOUT CERVICAL SPINE AND MATI UPPER TRAPS L>R. PATIENT REPORTS FEELING CLICKING IN NECK WITH LIGHT PALPATION OF CERVICAL SPINE. HE DENIES ANY SHARP PAINS WITH PALPATION. HE ALSO DENIES ANY UE RADIATING PAIN OR HEADACHE PAIN WITH PALPATION OR OTHER TESTING TODAY. Balance/Special Test Scores Oswestry Neck Score: 4 Goals Goal 1:: DECREASE C/O NECK PAIN BY AT LEAST 50% TO EASE ADL AND WORK FUNCTION Goal Time Frame: 4-6 Weeks Goal 2:: PATIENT WILL REPORT FEELING DECREASED NECK STIFFNESS BY AT LEAST 50% IN HIS NECK. Goal Time Frame: 4-6 Weeks Goal 3:: INDEP HEP Goal Time Frame: 4-6 Weeks Rehabilitation Potential Physical Therapy Diagnosis: NECK AND POSTURAL STIFFNESS AND WEAKNESS. Rehabilitation Potential: Good Anticipated Interventions Patient/Client Instruction: Educate patient on: Condition, Plan of Care and Risk Factors For the Purpose of:: To improve self management Therapeutic Exercise to Include: Strength training, Body mechanics, Postural training, Flexibilty training, Neuromotor development and Scapular Strength/Stabilization For the Purpose of:: To decrease pain, To improve muscle performance and motor function, To increase tolerance to activity/condition/position, To improve ability of physical actions for home/community/work/leisure, To decrease soft tissue restriction, To increase flexibility/ROM and To improve self management Manual Therapy Techniques to Include: Trigger point massage and Soft tissue mobilization For the Purpose of:: To decrease pain, To improve nutrient delivery to tissue, To increase oxygenation perfusion, To improve muscle performance and motor function, To decrease soft tissue restriction and To increase flexibility/ROM Cryotherapy (ice pack, ice massage): Yes Thermo therapy (hot pack): Yes Ultrasound (thermal/non thermal): Yes For the Purpose of:: To decrease pain, To decrease swelling/inflammation and To improve nutrient delivery to tissue Text: Thank you for the opportunity to evaluate your patient. For Medicare and Medicare HMO plans, please review the plan of care and approve it. It will need to be FAXED BACK to us at [phone] for Medicare purposes. For Medicare only, by signing this I certify the plan of care. Please let me know if there are questions or concerns regarding this plan of care. Physician Signature: Date:
--- NOTE | 2025-04-13 13:02 | HP.PTDCSUM ---
Discharge Summary D/C summary: It has been my pleasure to treat DAVID PAUL referred by Dr. Elkin Mancera MD, with the diagnosis of NECK PAIN AND DDD for a total of 8 visit(s). Discharge Date: 04/13/25 Please see the following information for a summary of their discharge status. Subjective Subjective: "I'M A LOT BETTER THAN WHAT I WAS". PATIENT REPORTS HE DOESN'T REALLY HAVE PAIN DOWN HIS L ARM ANYMORE AND THE MUSCLES ARE LOOSENING UP IN HIS NECK BUT HE STILL HAS LIMITED MOTION. HE STATES HE FEELS HE CAN CONTINUE ON HIS OWN AT THIS POINT. Pain L NECK: Pain Intensity (Out of 10): 3 Overall Improvement % Improvement: 50 Objective Objective/Function: PATIENT WAS SEEN TODAY FOR RE-ASSESSMENT OF PROGRESS TOWARD THE SET PT GOALS AND THE NEED FOR FURTHER PHYSICAL THERAPY VS READINESS FOR DISCHARGE. ALSO SEEN FOR HEP ADVANCEMENTS. HIS L UE RADICULAR SX'S HAVE RESOLVED BUT HER STILL HAS SIGNIFICANT CERVICAL ROM RESTRICTION AND NECK PAIN AT THE END OF THE AVAILABLE ROM. HE HAS HAD SOME IMPROVEMENT IN HIS NECK ROM AND IS HAVING LESS NECK PAIN. HE IS INEP WITH A HEP. PHYSICIAN FOLLOW UP RECOMMENDED IF HE DOES NOT CONTINUE TO IMPROVE WITH HEP AND PATIENT IS AGREEABLE. UPON EXAM TODAY: ROM deficit: R SHLD ELEVATION TO 160 DEG AND L 155 DEG. Cervical Mvmt Loss: Flex: MOD Pro: NIL Ext: MOD Ret: MOD RSB: MOD LSB: MOD R Rot: MOD L Rot: MOD PATIENT REPORTS MILD NECK PAIN AT THE END OF THE AVAILABLE ROM ALL PLANES - NW A RESULT. Goals Goal 1:: DECREASE C/O NECK PAIN BY AT LEAST 50% TO EASE ADL AND WORK FUNCTION Goal Progress: Goal Met Goal 2:: PATIENT WILL REPORT FEELING DECREASED NECK STIFFNESS BY AT LEAST 50% IN HIS NECK. Goal Progress: Goal Met Goal 3:: INDEP HEP Goal Progress: Goal Met Plan Plan: D/C TO INDEP HEP. D/C Information d/c sentence: If there are questions or concerns regarding this patient's physical therapy, please feel free to call me at [phone]. Thank you for the referral of this patient. Sincerely, Che Segura, PT, Cert MDT Balance/Gait/Functional tests Balance/Special Test Scores Oswestry Neck Score: 4 Improvement % Improvement: 50
== END 2025-04-13 19:00 | disposition home or self-care (01) ==
LOC: PT 12:00
PROVIDERS: PCP Family Medicine; Referring Provider Family Medicine; Visit Provider Family Medicine
DX: M54.2 Cervicalgia (principal)
CPT/HCPCS: 97035; 97140; 97162; 97530